=== PATIENT | male | born 1960 | race Caucasian/White ===

== ENCOUNTER 2021-06-12 14:38 | Emergency (ER) | payer OTHER, SELFPAY ==
[2021-06-12 14:56] VITALS: BP 177/81; PULSE 62; RESP 18; TEMP 37; O2SAT 100; BMI 25.0
--- NOTE | 2021-06-12 15:14 | DI.RAD.S_ITS ---
PROCEDURE: XR CHEST 1V INDICATIONS: palpitations TECHNIQUE: One view of the chest was acquired. COMPARISON: None. FINDINGS: Surgical changes and devices: None. Lungs and pleura: Lungs are clear. No pleural effusions or pneumothorax. Mediastinum: Mediastinal contours appear normal. Heart size is normal. Bones and chest wall: No suspicious bony lesions. Overlying soft tissues appear unremarkable. IMPRESSION: No acute cardiopulmonary abnormality. Dictated by: Kj Roblero M.D. on 06/12/2021 at 15:59 Approved by: Kj Roblero M.D. on 06/12/2021 at 16:00
[2021-06-12 15:38] VITALS: BP 148/76; PULSE 56; RESP 22; O2SAT 99
--- NOTE | 2021-06-12 15:47 | ED.CHESTPAIN ---
HPI - Chest Pain General Chief Complaint: Chest Pain Stated Complaint: heart palps Time Seen by Provider: 06/12/21 14:43 Source: patient Mode of arrival: EMS Limitations: no limitations History of Present Illness HPI narrative: Patient is a 61-year-old male who presents with palpitations. He states that he has had more episodes of anxiety and palpitations since October when his new boss took over. He says he has bad interactions with her he states that she is of [place] he gets triggered by her frequently. Today it happened again a little more intense than normal. He had a 1 on 1 evaluation with her 2 days ago he says it did not feel well in her interaction has not been good since. He is actively looking for a new job. He has an appointment with his primary care provider in 5 days to discuss anti anxiety medication. He says that he always has some level of anxiety but it has gotten significantly worse. He overall is feeling much better he is no longer having palpitations. He did not pass out. Related Data Allergies Allergy/AdvReac Type Severity Reaction Status Date / Time No Known Drug Allergies Allergy Verified 06/12/21 15:02 Review of Systems Review of Systems Narrative: GENERAL: Denies chills, fatigue, malaise, fever, sweats, travel HEENT: Denies sinus pain, ear pain, sore throat, difficulty swallowing, neck pain RESPIRATORY: Denies dyspnea, cough, wheezing, hemoptysis, sputum. CARDIOVASCULAR: See HPI this mass could GASTROINTESTINAL: Denies nausea, vomiting, abdominal pain, diarrhea, constipation, melena. : Denies dysuria, frequency, incontinence, hematuria, urinary retention, flank pain. MUSCULOSKELETAL: Denies weakness, joint pain, or bony pain SKIN: No rash, no erythema, no pruritus NEUROLOGIC: Denies weakness, dizziness, headache, numbness, change in speech, confusion PSYCHIATRIC: No concerning psychosocial issues. 12 point review of systems is negative except for those stated above and HPI Patient History Social History Smoking Status: Never smoker Smoking Status: Never smoker Substance Use Type: does not use Exam Initial Vital Signs Initial Vital Signs: Vital Signs Temperature 98.6 F 06/12/21 14:56 Pulse Rate 62 06/12/21 14:56 Respiratory Rate 18 06/12/21 14:56 Blood Pressure 177/81 H 06/12/21 14:56 Pulse Oximetry 100 06/12/21 14:56 GENERAL: Alert 61-year-old male no acute distress in no acute distress. HEENT: Head atraumatic,EOMI, pupils reactive, face symmetric, moist mucous membranes CARDIOVASCULAR: Regular rate and rhythm without murmurs, rubs or gallops. RESPIRATORY: Breath sounds equal bilaterally, no wheezes rales or rhonchi. ABDOMEN: Soft, nontender. Normoactive bowel sounds all 4 quadrants. No guarding or rebound. EXTREMITIES: Normal range of motion, no clubbing or edema. Neurovascularly intact NEUROLOGICAL: Alert and oriented x4.Normal gait and speech. SKIN: Warm, dry, no laceration, no petechiae, no rashes or lesions. Course Orders Ordered: ED Orders 06/12/21 15:14 XR chest 1V Stat EKG-12 Lead Stat 06/12/21 15:42 Complete Blood Count AUTO DIFF Stat Comprehensive Metabolic Panel Stat Lipase Stat Troponin & CK Cardiac Panel Stat Vital Signs Vital signs: Vital Signs - 8 hr 06/12/21 14:56 06/12/21 15:38 06/12/21 15:50 Temperature 98.6 F Pulse Rate 62 56 L 52 L Respiratory Rate 18 22 21 Blood Pressure 177/81 H 148/76 H 148/76 H Pulse Oximetry 100 99 95 06/12/21 16:00 06/12/21 16:30 06/12/21 17:00 Temperature Pulse Rate 53 L 56 L 60 Respiratory Rate 17 18 24 Blood Pressure 141/81 H 138/75 Pulse Oximetry 96 97 98 MDM - Chest Pain Lab Data Result diagrams: 06/12/21 15:42 06/12/21 15:42 Labs: Lab Results 06/12/21 06/12/21 Range/Units 15:42 15:42 WBC 6.0 (4.5-11.0) X10^3/uL RBC 5.00 (4.5-5.9) X10^6/uL Hgb 15.4 (13.5-17.5) g/dL Hct 45.3 (41-53) % MCV 90.5 (80-100) fL MCH 30.7 (26-34) PG MCHC 34.0 (30-36) % RDW 13.6 (11.6-14.8) % Plt Count 219 (150-400) X10^3/uL Neut % (Auto) 61.7 (50-75) % Lymph % (Auto) 27.2 (25-40) % [place] % (Auto) 8.7 (3-14) % Eos % (Auto) 1.6 L (2-4) % Baso % (Auto) 0.8 (0-2) % Neut # (Auto) 3700 (6486-2498) /uL Lymph # (Auto) 1600 (7836-5395) /uL [place] # (Auto) 500 (0-900) /uL Eos # (Auto) 100 (0-450) /uL Baso # (Auto) 0 (0-100) /uL Sodium 143 (137-145) mmol/L Potassium 3.8 (3.4-5.1) mmol/L Chloride 110 H (98-107) mmol/L Carbon Dioxide 27 (22-32) mmol/L BUN 15 (9-20) mg/dL Creatinine 0.81 (0.66-1.25) mg/dL Estimated GFR > 60.0 (>60) mL/min BUN/Creatinine Ratio 18.5 (6-22) Glucose 95 (70-100) mg/dL Calcium 9.3 (8.4-10.2) mg/dL Total Bilirubin 0.6 (0.2-1.3) mg/dL AST 23 (17-59) IU/L ALT 16 (<50) IU/L Alkaline Phosphatase 55 (38-126) U/L Total Creatine Kinase 61 (55-170) U/L CK-MB (CK-2) TNP CK-MB (CK-2) Rel Index TNP Troponin I < 0.012 (0.01-0.034) ng/mL Total Protein 7.3 (6.3-8.2) g/dL Albumin 4.5 (3.5-5.0) g/dL Globulin 2.8 (1.7-4.1) g/dL Albumin/Globulin Ratio 1.6 (1.0-2.8) Lipase 329 H (23-300) U/L Imaging Data Chest x-ray: Radiologist's Impression: PROCEDURE:? XR CHEST 1V ? INDICATIONS:? palpitations ? TECHNIQUE:? One view of the chest was acquired.? ? COMPARISON:? None. ? FINDINGS:? ? Surgical changes and devices:? None.? ? Lungs and pleura:? Lungs are clear.? No pleural effusions or pneumothorax.? ? Mediastinum:? Mediastinal contours appear normal.? Heart size is normal.? ? Bones and chest wall:? No suspicious bony lesions.? Overlying soft tissues appear unremarkable.? ? IMPRESSION:? No acute cardiopulmonary abnormality. ? ? Dictated by: Kj Roblero M.D. on 06/12/2021 at 15:59 ? ? ECG Data Interpretation: Normal sinus rhythm rate 55 CA interval 140 QRS [address] changes or T-wave inversions MDM Narrative Medical decision making narrative: Patient is overall feeling much better now being in the emergency department. It seems as though his work involves are obviously triggering him to have severe anxiety and heart pounding. He seems his of his good outpatient follow-up is appointment in a few days to talk about anxiety medicine he is also actively looking for a new job. At this time he can not think of interacting with her again. I will give him a few days off work. We discussed about other coping mechanisms such as meditation yoga exercise and other hobbies. He is aware of all of this. Discharge Plan Departure Patient Disposition: Home Clinical Impression: Anxiety Instructions: DI for Anxiety -- Adult Activity Restrictions/Additional Instructions: *You have been diagnosed with anxiety *What to do: At this time I recommend seeing her provider about possible medication. Other things to also try would be yoga meditation reading exercise in any other activity you enjoy. *Continue to take medications as directed *Follow up with your primary care provider in 2-3 days or call [phone] *Return to ER if you should have increasing palpitation chest pain passing out or severe anxiety any new, worsening or concerning symptoms Referrals: Brian Hernandes ARNP [Non-Staff] - Stand Alone Forms: Work Release Note
[2021-06-12 15:50] VITALS: BP 148/76; PULSE 52; RESP 21; O2SAT 95
[2021-06-12 15:52] LABS: Add Manual Diff / Slide Review NO; Basophils Absolute Auto 0 /uL (0-100); Basophils Percent Auto 0.8 % (0-2); Eosinophils Absolute Auto 100 /uL (0-450); Eosinophils Percent Auto 1.6 % (2-4); Hematocrit 45.3 % (41-53); Hemoglobin 15.4 g/dL (13.5-17.5); Lymphocytes Absolute Auto 1600 /uL (1100-4500); Lymphocytes Percent Auto 27.2 % (25-40); Mean Corpuscular Hemoglobin 30.7 PG (26-34); Mean Corpuscular Volume 90.5 fL (80-100); Monocytes Absolute Auto 500 /uL (0-900); Monocytes Percent Auto 8.7 % (3-14); Neutrophils Absolute Auto 3700 /uL (1500-7000); Neutrophils Percent Auto 61.7 % (50-75); Platelet Count 219 X10^3/uL (150-400); Red Cell Distribution Width 13.6 % (11.6-14.8)
[2021-06-12 16:00] VITALS: BP 141/81; PULSE 53; RESP 17; O2SAT 96
[2021-06-12 16:19] LABS: Alanine Aminotransferase 16 IU/L (<50); Albumin 4.5 g/dL (3.5-5.0); Albumin Globulin Ratio 1.6 (1.0-2.8); Alkaline Phosphatase 55 U/L (38-126); Aspartate Aminotransferase 23 IU/L (17-59); BUN Creatinine Ratio 18.5 (6-22); Bilirubin Total 0.6 mg/dL (0.2-1.3); Blood Urea Nitrogen 15 mg/dL (9-20); Calcium 9.3 mg/dL (8.4-10.2); Carbon Dioxide 27 mmol/L (22-32); Chloride 110 mmol/L (98-107); Creatine Kinase 61 U/L (55-170); Estimated Glomerular Filt Rate > 60.0 mL/min (>60); Globulin 2.8 g/dL (1.7-4.1); Glucose 95 mg/dL (70-100); HEMOLYSIS 24 (0-50); Lipase 329 U/L (23-300); Potassium 3.8 mmol/L (3.4-5.1); Sodium 143 mmol/L (137-145); Total Protein 7.3 g/dL (6.3-8.2)
[2021-06-12 16:30] VITALS: BP 138/75; PULSE 56; RESP 18; O2SAT 97
[2021-06-12 16:31] LABS: Troponin I < 0.012 ng/mL (0.01-0.034)
[2021-06-12 17:00] VITALS: PULSE 60; RESP 24; O2SAT 98
== END 2021-06-12 17:19 | disposition home or self-care (01) ==
PROVIDERS: Emergency Provider Emergency Medicine; Family Provider Family Medicine
DX: F41.9 Anxiety disorder, unspecified (principal)
CPT/HCPCS: 36415; 71045; 80053; 82550; 83690; 84484; 85025; 93005; 99283; 99284

== ENCOUNTER 2022-05-14 08:55 | Emergency (ER) | payer OTHER, SELFPAY ==
--- NOTE | 2022-05-14 09:06 | DI.RAD.S_ITS ---
PROCEDURE: XR CHEST 1V INDICATIONS: chest pain TECHNIQUE: One view of the chest was acquired. COMPARISON: [facility], CR, XR CHEST 1V, 06/12/2021, 15:48. FINDINGS: Surgical changes and devices: None. Lungs and pleura: Lungs are clear. No pleural effusions or pneumothorax. Mediastinum: Mediastinal contours appear normal. Heart size is normal. Bones and chest wall: No suspicious bony lesions. Overlying soft tissues appear unremarkable. IMPRESSION: No acute cardiopulmonary pathology. Dictated by: Jaden De Dios M.D. on 05/14/2022 at 9:32 Approved by: Jaden De Dios M.D. on 05/14/2022 at 9:32
[2022-05-14 09:07] VITALS: BP 144/69; PULSE 62; RESP 18; TEMP 36.8; O2SAT 98; BMI 26.3
[2022-05-14 09:49] LABS: Add Manual Diff / Slide Review NO; Basophils Absolute Auto 0 /uL (0-100); Basophils Percent Auto 0.8 % (0-2); Eosinophils Absolute Auto 200 /uL (0-450); Eosinophils Percent Auto 3.8 % (2-4); Hematocrit 41.3 % (41-53); Hemoglobin 13.8 g/dL (13.5-17.5); Lymphocytes Absolute Auto 1300 /uL (1100-4500); Lymphocytes Percent Auto 24.8 % (25-40); Mean Corpuscular HGB Conc 33.5 % (30-36); Mean Corpuscular Hemoglobin 30.5 PG (26-34); Mean Corpuscular Volume 91.2 fL (80-100); Monocytes Absolute Auto 400 /uL (0-900); Monocytes Percent Auto 7.9 % (3-14); Neutrophils Absolute Auto 3400 /uL (1500-7000); Neutrophils Percent Auto 62.7 % (50-75); Platelet Count 115 X10^3/uL (150-400); Prothrombin Time 11.3 SECONDS (10.1-12.7); Red Blood Cell Count 4.53 X10^6/uL (4.5-5.9); Red Cell Distribution Width 13.3 % (11.6-14.8); White Blood Cell Count 5.4 X10^3/uL (4.5-11.0)
[2022-05-14 09:52] LABS: PTT Partial Thromboplastin Tim 24 SECONDS (26-36)
[2022-05-14 10:06] LABS: Alanine Aminotransferase 22 IU/L (<50); Albumin 4.1 g/dL (3.5-5.0); Albumin Globulin Ratio 1.6 (1.0-2.8); Alkaline Phosphatase 56 U/L (38-126); Aspartate Aminotransferase 23 IU/L (17-59); BUN Creatinine Ratio 16.1 (6-22); Bilirubin Total 0.4 mg/dL (0.2-1.3); Blood Urea Nitrogen 14 mg/dL (9-20); Calcium 8.7 mg/dL (8.4-10.2); Carbon Dioxide 28 mmol/L (22-32); Chloride 106 mmol/L (98-107); Creatine Kinase 61 U/L (55-170); Estimated Glomerular Filt Rate > 60 mL/min (>60); Globulin 2.6 g/dL (1.7-4.1); Glucose 85 mg/dL (80-110); HEMOLYSIS < 15 (0-50); Lipase 164 U/L (23-300); Potassium 3.9 mmol/L (3.4-5.1); Sodium 141 mmol/L (137-145); Total Protein 6.7 g/dL (6.3-8.2)
[2022-05-14 10:17] LABS: Troponin I < 0.012 ng/mL (0.01-0.034)
--- NOTE | 2022-05-14 10:27 | ED.ARRPALP ---
HPI - Arrhythmia/Palpitations General Chief Complaint: Arrhythmia/Palpitations Stated Complaint: heart palpatations [id number] Time Seen by Provider: 05/14/22 10:27 Source: patient Mode of arrival: Family Vehicle Limitations: no limitations History of Present Illness HPI narrative: This is a 62-year-old male with complaint of heart palpitations, arrhythmia sensation and chest pain intermittently for the past 3 weeks. Patient states he is had mild symptoms in the past he had a stress test in 2020 which he states was negative and a Holter monitor in 2020 which showed episodes of bradycardia and he states 1 other thing but at that time he was not very symptomatic so no adjustments were made in medications or other interventions. Patient states for the past 3 weeks he is had some increasing intensity and more frequency. He states last night he would episodes throughout the last 24 hours. States it feels irregular does not really feel fast or slow. He states it feels similar to prior episodes. He he states he gets a little chest pain across the top of his chest on both sides in the collarbone area and bit down to the left. Does not radiate elsewhere. He sometimes feels short of breath but associated more with the palpitations and the chest discomfort. He states the palpitations do not seem to be associated with the chest discomfort. He states the pain will last for a couple minutes to up to 30 minutes. Nothing seems to exacerbate it nothing seems to alleviate it. He denies diaphoresis no nausea or vomiting no syncope. He states his only medications are Zoloft and tamsulosin and occasional Maxalt. He is not on aspirin or other blood thinners. He had a left orchiectomy for chronic epididymitis remotely and prior trigger finger surgery. No known drug allergies. No tobacco, alcohol or illicit. Notes his dad from a heart attack around age 52 but had uncontrolled diabetes and he had a paternal grandfather who had cardiac issues. He has a brother but is estranged and does not know their medical history. [facility] [place] [facility]. He is supposed to see Cardiology with [place] to establish for the symptoms. He did see [facility]iology in 2020. Related Data Allergies Allergy/AdvReac Type Severity Reaction Status Date / Time No Known Drug Allergies Allergy Verified 06/12/21 15:02 Review of Systems Review of Systems ROS Unobtainable: All systems reviewed & are unremarkable except as noted in HPI and below Patient History Social History Smoking Status: Never smoker Smoking Status: Never smoker alcohol intake frequency: 0-2 drinks per day Substance Use Type: does not use Exam Narrative Exam Narrative: GENERAL: Alert and oriented x three, mild distress HEENT: Head normocephalic, atraumatic, EOMI, pupils reactive, face symmetric, moist mucous membranes NECK: Supple, full range of motion CARDIOVASCULAR: Regular rate and rhythm without murmurs, rubs or gallops. No JVD. No swelling extremities. RESPIRATORY: Breath sounds equal bilaterally, no wheezes rales or rhonchi. No tachypnea. Speaks in full sentences. ABDOMEN: Soft, nontender. Normoactive bowel sounds all 4 quadrants. No guarding or rebound, rigidity, no mass : No CVA tenderness EXTREMITIES: Normal range of motion, no clubbing or edema. Neurovascularly intact NEUROLOGICAL: Cranial nerves II through XII grossly intact. Moving all extremities SKIN: Warm, dry, no petechiae, no rashes or lesions. Initial Vital Signs Initial Vital Signs: Vital Signs Temperature 98.3 F 05/14/22 09:07 Pulse Rate 62 05/14/22 09:07 Respiratory Rate 18 05/14/22 09:07 Blood Pressure 144/69 H 05/14/22 09:07 Pulse Oximetry 98 05/14/22 09:07 Oxygen Delivery Method 05/14/22 09:07 Course Orders Ordered: ED Orders 05/14/22 11:17 Trop I [Troponin I] Stat Discontinued Medications Aspirin (Aspirin 81 Mg Chew Tab) 324 mg PO NOW ONE Stop: 05/14/22 09:07 Last Admin: 05/14/22 09:27 Dose: Not Given Documented By: DL Vital Signs Vital signs: Vital Signs - 8 hr 05/14/22 09:07 Temperature 98.3 F Pulse Rate 62 Respiratory Rate 18 Blood Pressure 144/69 H Pulse Oximetry 98 Oxygen Delivery Method Room Air MDM - Arrhythmia/Palpitations Lab Data 05/14/22 09:20 05/14/22 09:20 Labs: Lab Results 05/14/22 05/14/22 05/14/22 Range/Units 09:20 09:20 09:20 WBC 5.4 (4.5-11.0) X10^3/uL RBC 4.53 (4.5-5.9) X10^6/uL Hgb 13.8 (13.5-17.5) g/dL Hct 41.3 (41-53) % MCV 91.2 (80-100) fL MCH 30.5 (26-34) PG MCHC 33.5 (30-36) % RDW 13.3 (11.6-14.8) % Plt Count 115 L (150-400) X10^3/uL Neut % (Auto) 62.7 (50-75) % Lymph % (Auto) 24.8 L (25-40) % [place] % (Auto) 7.9 (3-14) % Eos % (Auto) 3.8 (2-4) % Baso % (Auto) 0.8 (0-2) % Neut # (Auto) 3400 (4075-5013) /uL Lymph # (Auto) 1300 (1102-4080) /uL [place] # (Auto) 400 (0-900) /uL Eos # (Auto) 200 (0-450) /uL Baso # (Auto) 0 (0-100) /uL PT 11.3 (10.1-12.7) SECONDS INR 1.0 (0.9-1.3) APTT 24 L (26-36) SECONDS Sodium 141 (137-145) mmol/L Potassium 3.9 (3.4-5.1) mmol/L Chloride 106 (98-107) mmol/L Carbon Dioxide 28 (22-32) mmol/L BUN 14 (9-20) mg/dL Creatinine 0.87 (0.66-1.25) mg/dL Estimated GFR > 60 (>60) mL/min BUN/Creatinine Ratio 16.1 (6-22) Glucose 85 (80-110) mg/dL Calcium 8.7 (8.4-10.2) mg/dL Magnesium 2.0 (1.6-2.3) mg/dL Total Bilirubin 0.4 (0.2-1.3) mg/dL AST 23 (17-59) IU/L ALT 22 (<50) IU/L Alkaline Phosphatase 56 (38-126) U/L Total Creatine Kinase 61 (55-170) U/L CK-MB (CK-2) TNP CK-MB (CK-2) Rel Index TNP Troponin I < 0.012 (0.01-0.034) ng/mL Total Protein 6.7 (6.3-8.2) g/dL Albumin 4.1 (3.5-5.0) g/dL Globulin 2.6 (1.7-4.1) g/dL Albumin/Globulin Ratio 1.6 (1.0-2.8) Lipase 164 (23-300) U/L 05/14/22 Range/Units 11:17 WBC (4.5-11.0) X10^3/uL RBC (4.5-5.9) X10^6/uL Hgb (13.5-17.5) g/dL Hct (41-53) % MCV (80-100) fL MCH (26-34) PG MCHC (30-36) % RDW (11.6-14.8) % Plt Count (150-400) X10^3/uL Neut % (Auto) (50-75) % Lymph % (Auto) (25-40) % [place] % (Auto) (3-14) % Eos % (Auto) (2-4) % Baso % (Auto) (0-2) % Neut # (Auto) (3440-6959) /uL Lymph # (Auto) (7961-4986) /uL [place] # (Auto) (0-900) /uL Eos # (Auto) (0-450) /uL Baso # (Auto) (0-100) /uL PT (10.1-12.7) SECONDS INR (0.9-1.3) APTT (26-36) SECONDS Sodium (137-145) mmol/L Potassium (3.4-5.1) mmol/L Chloride (98-107) mmol/L Carbon Dioxide (22-32) mmol/L BUN (9-20) mg/dL Creatinine (0.66-1.25) mg/dL Estimated GFR (>60) mL/min BUN/Creatinine Ratio (6-22) Glucose (80-110) mg/dL Calcium (8.4-10.2) mg/dL Magnesium (1.6-2.3) mg/dL Total Bilirubin (0.2-1.3) mg/dL AST (17-59) IU/L ALT (<50) IU/L Alkaline Phosphatase (38-126) U/L Total Creatine Kinase (55-170) U/L CK-MB (CK-2) CK-MB (CK-2) Rel Index Troponin I < 0.012 (0.01-0.034) ng/mL Total Protein (6.3-8.2) g/dL Albumin (3.5-5.0) g/dL Globulin (1.7-4.1) g/dL Albumin/Globulin Ratio (1.0-2.8) Lipase (23-300) U/L Urine Dip Bedside Urine Glucose Negative Bedside Urine Bilirubin - Negative Bedside Urine Ketone - Negative Urine Specific [place] 1.015 Bedside Urine Occult Blood - Negative Bedside Urine pH 6.5 Bedside Urine Protein - Negative Bedside Urine Urobilinogen - Negative Bedside Urine Nitrite - Negative Bedside Urine Leukocytes - Negative Esterase Imaging Data Chest x-ray: Radiologist's Impresson: Close Chest X-Ray (Signed) Jaden De Dios - 05/14/22 Chest X-Ray (Signed) Kj Roblero - 06/12/21 [facility]?[place] [address] XRay Report Signed Patient: Richard Oneil MR#: [id number] : 1960 Acct:[id number] Age/Sex: 62 / M Date of Service: 05/14/22 Loc: ED Accession Number: [id number] ?? Procedure: XR chest 1V Ordering Provider: Nesha Fine D.O. PROCEDURE:? XR CHEST 1V ? INDICATIONS:? chest pain ? TECHNIQUE:? One view of the chest was acquired.? ? COMPARISON:? [facility], , XR CHEST 1V, 06/12/2021, 15:48. ? FINDINGS:? ? Surgical changes and devices:? None.? ? Lungs and pleura:? Lungs are clear.? No pleural effusions or pneumothorax.? ? Mediastinum:? Mediastinal contours appear normal.? Heart size is normal.? ? Bones and chest wall:? No suspicious bony lesions.? Overlying soft tissues appear unremarkable.? ? IMPRESSION:? No acute cardiopulmonary pathology. ? ? Dictated by: Jaden De Dios M.D. on 05/14/2022 at 9:32 ? ? Approved by: Jaden De Dios M.D. on 05/14/2022 at 9:32?? ECG Data Attestation: I personally reviewed and interpreted this ECG as follows: Prior ECG tracings: available for review Interpretation: Sinus bradycardia with premature atrial complexes. Rate of 58 [place] 148 QRS of [address] QTC [address] No acute ST changes noted. Prior from 06/12/2021 appears similar. EKG 2. Sinus bradycardia rate of 52 [place] 142 QRS of 94 and QTC 411. No acute ST elevation or depression noted. MDM Narrative Medical decision making narrative: This is a 62-year-old male with complaint of palpitations and chest pain intermittently. Patient is bradycardic with occasional PVC but not persistently regularly. He states he is having persistent symptoms while in the room but is not captured on telemetry as any form of arrhythmias. Patient's workup including CBC, CMP, troponin are negative, EKGs do not show any dynamic changes. Patient is currently asymptomatic in terms chest pain. Patient's chest x-ray is negative. He has follow-up tomorrow with Cardiology and had had a Holter monitor and stress test in 2020. Patient felt appropriate for discharge home at this time with return precautions. To continue his home medications. Discharge Plan Departure Patient Disposition: Home Clinical Impression: Palpitations, Atypical chest pain Activity Restrictions/Additional Instructions: Follow-up with cardiology tomorrow for recheck and further workup. You have had occasional PVC but no other arrhythmias here you are bradycardic on your EKG but appears similar to prior EKG from June of 2021. Please return for new or worsening symptoms increasing chest pain, shortness of breath, lightheadedness or passing out, persistent irregular rhythm change, worsening swelling or other new or concerning changes. Referrals: Brian Hernandes ARNP [Primary Care Provider] - Stand Alone Forms: Patient Portal/API
[2022-05-14 11:48] LABS: Troponin I < 0.012 ng/mL (0.01-0.034)
== END 2022-05-14 13:00 | disposition home or self-care (01) ==
PROVIDERS: Emergency Provider Emergency Medicine; Family Provider Family Medicine; PCP Registered Nurse
DX: R00.2 Palpitations (principal); R07.89 Other chest pain; R00.1 Bradycardia, unspecified
CPT/HCPCS: 36415; 71045; 80053; 81003; 82550; 83690; 83735; 84484; 85025; 85610; 85730; 93005; 99283; 99284

== ENCOUNTER → 2024-08-23 11:14 | Outpatient (CLI) | payer OTHER, SELFPAY ==
[2024-08-23 13:21] LABS: Prostate Specific Antigen Scrn 2.42 ng/mL (0.1-4.0)
== END ==
LOC: LAB 11:15
PROVIDERS: Family Provider Family Medicine; PCP Registered Nurse; Referring Provider Urology; Visit Provider Urology
DX: Z12.5 Encounter for screening for malignant neoplasm of prostate (principal)
CPT/HCPCS: 36415; G0103

== ENCOUNTER → 2025-02-19 09:47 | Outpatient (CLI) | payer OTHER, SELFPAY | PROVIDERS: PCP Registered Nurse; Visit Provider Urology | DX: N40.1 Benign prostatic hyperplasia with lower urinary tract symptoms (principal); N13.8 Other obstructive and reflux uropathy | CPT/HCPCS: 87086 ==

== ENCOUNTER → 2025-02-25 10:19 | Outpatient (CLI) | payer OTHER, SELFPAY ==
[2025-02-25 11:00] LABS: Influenza A - CEPHEID Flu A NEGATIVE (NEGATIVE); Influenza B - CEPHEID Flu B NEGATIVE (NEGATIVE)
[2025-02-25 11:09] LABS: COVID-19 CEPHEID 4-PLEX PCR Negative (Negative)
== END ==
PROVIDERS: PCP Registered Nurse; Visit Provider Chiropractor
DX: J02.9 Acute pharyngitis, unspecified (principal)
CPT/HCPCS: 87637